=== PATIENT | female | born 1945 | race Caucasian/White ===

== ENCOUNTER 2018-03-02 14:31 | Outpatient (CLI) | payer MEDICARE ==
--- NOTE | 2018-03-02 15:17 | RAD ---
RIGHT HIP TWO VIEWS: History: 72-year-old female with history of right hip pain. FINDINGS: There is markedly severe flattening and deformity and foreshortening of the right femoral head with m arked joint space loss, possibly related to prior trauma or extensive long standing degenerative chinchilla ge or other old insult. There are marked arthrosis changes of the left hip joint but there is less de formity and flattening. No evidence for acute fracture. IMPRESSION: No evidence for acute fracture or dislocation. Marked fecal material in a minimally dilated rectum. V leatha severe flattening and deformity and foreshortening of the right femoral head which appears chroni c, probably related to some type of prior traumatic or other old insult with severe osteoarthrosis ch anges but no evidence for acute fracture or dislocation. POS: OFF
== END 2018-03-02 14:32 | disposition home or self-care (01) ==
LOC: RAD 14:31
PROVIDERS: ATTEND Physical Medicine & Rehabilitation
DX: I10 Essential (primary) hypertension (principal)

== ENCOUNTER 2021-02-11 10:09 | Outpatient (CLI) | payer MEDICARE | END 2021-02-11 10:10 | disposition home or self-care (01) | LOC: BICMAMMO 10:09 | PROVIDERS: ATTEND Specialist | DX: M85.832 Other specified disorders of bone density and structure, left forearm (principal) | CPT/HCPCS: 77080 ==

== ENCOUNTER 2021-03-02 09:53 | Outpatient (CLI) | payer MEDICARE | END 2021-03-02 09:54 | disposition home or self-care (01) | LOC: BICMAMMO 09:53 | PROVIDERS: ATTEND Specialist | DX: Z12.31 Encounter for screening mammogram for malignant neoplasm of breast (principal); R06.00 Dyspnea, unspecified; N63.24 Unspecified lump in the left breast, lower inner quadrant; R92.0 Mammographic microcalcification found on diagnostic imaging of breast; N64.89 Other specified disorders of breast; I70.0 Atherosclerosis of aorta; M47.814 Spondylosis without myelopathy or radiculopathy, thoracic region; J98.4 Other disorders of lung | CPT/HCPCS: 71046; 77063; 77067 ==

== ENCOUNTER 2021-03-04 13:09 | Outpatient (CLI) | payer MEDICARE | END 2021-03-04 13:10 | disposition home or self-care (01) | LOC: BICMAMMO 13:09 | PROVIDERS: ATTEND Specialist | DX: N63.20 Unspecified lump in the left breast, unspecified quadrant (principal) | CPT/HCPCS: 76642; 77065; G0279 ==

== ENCOUNTER 2021-03-29 16:24 | Outpatient (CLI) | payer MEDICARE | END 2021-03-29 16:25 | disposition home or self-care (01) | LOC: BICRAD 16:24 | PROVIDERS: ATTEND Nurse Practitioner Family | DX: M54.5 Low back pain (principal); N23 Unspecified renal colic; M47.816 Spondylosis without myelopathy or radiculopathy, lumbar region; M53.3 Sacrococcygeal disorders, not elsewhere classified | CPT/HCPCS: 72100; 72202; 72220; 74018 ==

== ENCOUNTER 2021-04-09 10:55 | Outpatient (CLI) | payer MEDICARE | END 2021-04-09 10:56 | disposition home or self-care (01) | LOC: NM 10:55 | PROVIDERS: ATTEND Specialist | DX: M89.8X9 Other specified disorders of bone, unspecified site (principal); M43.16 Spondylolisthesis, lumbar region; M47.816 Spondylosis without myelopathy or radiculopathy, lumbar region | CPT/HCPCS: 78306; A9503 ==

== ENCOUNTER 2024-05-15 09:51 | Outpatient (CLI) | payer MEDICARE | END 2024-05-15 09:52 | disposition home or self-care (01) | LOC: SCSRAD 09:51 | PROVIDERS: ATTEND Specialist | DX: M25.552 Pain in left hip (principal); Z96.642 Presence of left artificial hip joint ==

== ENCOUNTER 2025-09-17 08:46 | Outpatient (CLI) | payer MEDICARE | END 2025-09-17 08:47 | disposition home or self-care (01) | LOC: NM 08:46 | PROVIDERS: ATTEND Specialist | DX: E83.52 Hypercalcemia (principal); R93.7 Abnormal findings on diagnostic imaging of other parts of musculoskeletal system; Z96.643 Presence of artificial hip joint, bilateral; Z96.651 Presence of right artificial knee joint | CPT/HCPCS: 78306; A9503 ==

== ENCOUNTER 2025-10-02 10:51 | Outpatient (CLI) | payer MEDICARE | END 2025-10-02 10:52 | disposition home or self-care (01) | LOC: BICRAD 10:51 | PROVIDERS: ATTEND Specialist | DX: M89.9 Disorder of bone, unspecified (principal) ==